=== PATIENT | male | born 1960 | race Two or more races ===

== ENCOUNTER 2018-05-28 05:02 | Emergency (ER) | payer OTHER ==
[~2018-05-28] VITALS: Ht 182.9 cm; Wt 181.4 kg
[~2018-05-28 05:02] MED LIST: LOTREL 2.5/10 M1 CAP; METFORMIN HCL500 MG; PREVACID30 MG PO; TARKA 1/2401 BOTTLE PO
[2018-05-28] MEDS ORDERED: TOPROL XL50 M1 (05:13)
[2018-05-28] MEDS ORDERED: DIOVAN160 M1 (05:13)
[2018-05-28] MEDS ORDERED: KETO10TA2 PO (14:24)
[2018-05-28] MEDS ORDERED: CIPRO500 MG PO (14:24)
[2018-05-28] MEDS ORDERED: LEVSIN/SL0.125 MG PO (14:24)
== END 2018-05-28 16:31 | disposition home or self-care (01) ==
LOC: ER 05:02
DX: K80.50 Calculus of bile duct without cholangitis or cholecystitis without obstruction (principal); K80.80 Other cholelithiasis without obstruction